=== PATIENT | male | born 1975 | race American Indian/Alaskan Native ===

== ENCOUNTER 2022-05-26 02:33 | Emergency (ER) | payer SELFPAY ==
[~2022-05-26] VITALS: Ht 177.8 cm; Wt 102.1 kg
[2022-05-26] MEDS ORDERED: MYLANTA ONE (02:41)
[2022-05-26] MEDS ORDERED: LIDOCAINE HCL VISCOUS ONE (02:41)
[2022-05-26] MEDS ORDERED: MYLANTA PO STA (02:44)
[2022-05-26] MEDS ORDERED: LIDOCAINE HCL VISCOUS MM STA (02:44)
[2022-05-26 02:45] VITALS: BP 177/104
--- NOTE | 2022-05-26 02:52 | PCM.EKG ---
[facility] Test Date: 2022-05-26 Test Time: 02:34:43 Pat Name: HIMANSHU CHAVES Department: Room: Gender: M Cook Jelly: SHAN : 1975 Requested By: REENA NELSON Order Number: [id number] Reading MD: Measurements Intervals [place] Rate: 87 P: -3 [place]: 145 QRS: -17 QRSD: 90 T: 7 QT: 387 QTc: 466 Interpretive Statements Sinus rhythm Multiple ventricular premature complexes Probable left atrial enlargement Borderline left axis deviation No previous ECG available for comparison Please click the below link to view image of tracing.
[2022-05-26] MEDS: NITROSTAT SL PRN ×3 (02:54→03:37)
--- NOTE | 2022-05-26 02:54 | NUR ---
XRAY IN ROOM FOR XR CHEST
[2022-05-26 02:56] LABS: BASOPHIL % 0.3 % (0.0-0.2); EOSINOPHIL # 0.1 10^3/uL (0.0-0.2); LYMPHOCYTES # 5.16 10^3/uL1 (1.0-4.8); LYMPHOCYTES % 53.7 % (24.0-44.0); MEAN CORP HGB 31.7 pg (26-34); MONOCYTES # 0.8 10^3/uL (0.3-0.8); MONOCYTES % 8.7 % (5.0-12.0); NEUTROPHIL # 3.5 10^3/uL (1.8-7.7); NEUTROPHILS % 36.2 % (41.0-85.0); PLATELET COUNT 276 10^3/uL (150-400); RED CELL DISTRIBUTION WIDTH 13.3 % (11.5-14.5)
--- NOTE | 2022-05-26 03:00 | DIREP ---
PROCEDURE:CHEST 1 VIEW COMPARISON:None. INDICATIONS:chest pain FINDINGS: LUNGS/PLEURA:No significant pulmonary parenchymal abnormalities. No effusion or pneumothorax. VASCULATURE:Normal. Unremarkable pulmonary vasculature. CARDIAC:Heart size is normal. MEDIASTINUM:Normal. No visible mass or adenopathy. BONES:Normal. No fracture or visible bony lesion. OTHER:EKG leads overlie the chest. CONCLUSION: No acute cardiopulmonary abnormality. Dictated by: Yang Jenkins MD on 05/26/2022 at 02:58 AM
[2022-05-26] MEDS ORDERED: MORPHINE SULFATE ONE (03:19)
[2022-05-26 03:20] LABS: CARBON DIOXIDE 22.6 mmol/L (20.0-32)
[2022-05-26] MEDS ORDERED: MORPHINE SULFATE IV STA (03:20)
[2022-05-26 03:24] LABS: EOSINOPHIL 1 % (1-4); LYMPHOCYTE 59 % (25-36); MONOCYTE 7 % (3-9); SEGMENTED NEUTROPHILS 33 % (31-76)
[2022-05-26] MEDS ORDERED: ASPIRIN PO STA (03:24)
[2022-05-26] MEDS ORDERED: HEPARIN 500 UNIT/5 ML (100/ML) IV STA (03:24)
[2022-05-26] MEDS ORDERED: ASPIRIN ONE (03:25)
[2022-05-26] MEDS ORDERED: HEPARIN ONE (03:25)
[2022-05-26 03:30] VITALS: BP 155/97
[2022-05-26] MEDS ORDERED: HEPARIN IV STA (03:31)
--- NOTE | 2022-05-26 03:40 | NUR ---
EKG sent to Dr. Naik.
[2022-05-26] MEDS ORDERED: HEPARIN-D5W 20,000 UNIT/500 ML 500 ML IV ONE (03:46)
--- NOTE | 2022-05-26 03:48 | ER.PDOC ---
General Chief Complaint: Dyspnea/Respdistress Stated Complaint: DIFF BREATHING Time seen by MD: 03:00 Source: patient Exam Limitations: no limitations History of Present Illness Initial Comments 46-year-old male with no significant medical history, about 1 hour ago woke up with severe chest pain. It is central, burning, also heaviness. No radiation. He does have some shortness of breath. The pain has been constant since it started. No leg pain or edema. No history of DVT or PE. States that he is normally healthy, exercises frequently and is active, non-smoker Timing/Duration: 1-3 hours Severity/Quality: severe Activities at Onset: sleep Prior CP/Workup: No Prior Chest Pain Associated Symptoms: shortness of breath Allergies: Coded Allergies: No Known Allergies (Unverified , 05/26/22) Past Medical History Medical History: diabetes Surgical History: no surgical history Social History Alcohol Use: none Drug Use: none All Other Systems: Reviewed and Negative Physical Exam General Appearance: Moderate Distress HEENT: Normal ENT Inspection Neck: Normal Inspection Respiratory: lungs clear, normal breath sounds Cardiovascular: Normal Peripheral Pulses, Regular Rate, Rhythm, No Edema Extremities: Normal Inspection, No Pedal Edema Neurologic/Psychiatric: Alert, Oriented x 3 Skin: Normal Color Lymphatic: No Adenopathy Results/Orders Results/Orders Orders - REENA NELSON MD Lidocaine Hcl (Lidocaine Hcl Viscous) (05/26/22 02:44) Mag Hydrox/Aluminum Hyd/Simeth (Mylanta) (05/26/22 02:44) Cbc With Auto Diff (05/26/22 02:49) Comprehensive Metabolic Panel (05/26/22 02:49) Probnp B-Type Wood Router (05/26/22 02:49) D-Dimer (05/26/22 02:49) Xr Chest 1v (05/26/22 02:49) PT (05/26/22 02:49) Ekg-Routine (05/26/22 02:49) Troponin I High Sensitivity (05/26/22 02:49) Nitroglycerin (Nitrostat) (05/26/22 03:00) Saline Lock (05/26/22 02:53) Morphine Sulfate (Morphine Sulfate) (05/26/22 03:19) Morphine Sulfate (Morphine Sulfate) (05/26/22 03:20) Aspirin (Aspirin) (05/26/22 03:24) Heparin Sodium,Porcine/Pf (Heparin 500 U (05/26/22 03:24) Aspirin (Aspirin) (05/26/22 03:25) Heparin Sodium,Porcine (Heparin) (05/26/22 03:25) Heparin Sodium,Porcine (Heparin) (05/26/22 03:31) Heparin Sodium,Porcine/D5w (Heparin-D5w (05/26/22 04:00) Heparin Sodium,Porcine/D5w (Heparin-D5w (05/26/22 04:00) Vital Signs Date Time Temp Pulse Resp B/P (MAP) Pulse Ox O2 Delivery O2 Flow Rate FiO2 05/26/22 02:45 98.1 93 20 100 05/26/22 02:45 98.1 93 20 05/26/22 02:45 98.1 93 20 177/104 (128) 100 Room Air* 0 21 Administered Medications Medications (Trade) Dose Ordered Sig/Maren Route PRN Reason Start Time Stop Time Status Last Admin Dose Admin Aspirin (Aspirin) 325 mg OT STAT PO 05/26/22 03:24 05/26/22 03:25 DC 05/26/22 03:30 325 MG Heparin Sodium (Porcine) (Heparin) 5,000 unit STAT STAT IV 05/26/22 03:31 05/26/22 03:34 DC 05/26/22 03:35 5,000 UNIT Lidocaine HCl (Lidocaine HCl Viscous) 15 ml STAT STAT MM 05/26/22 02:44 05/26/22 02:46 DC 05/26/22 02:46 15 ML Morphine Sulfate (Morphine Sulfate) 4 mg STAT STAT IV 05/26/22 03:20 05/26/22 03:21 DC 05/26/22 03:21 4 MG Nitroglycerin (Nitrostat) 0.4 mg PRN PRN SL CHEST PAIN 05/26/22 03:00 06/25/22 02:59 05/26/22 03:37 0.4 MG Laboratory Tests Test 05/26/22 02:50 05/26/22 02:59 White Blood Count 9.6 10^3/uL (4.5-11.0) Red Blood Count 5.24 10^6/uL (4.50-5.90) Hemoglobin 16.6 g/dL (13.9-16.3) H Hematocrit 48.5 % (37.0-53.0) Mean Corpuscular Volume 92.6 fL (78-100) Mean Corpuscular Hemoglobin 31.7 pg (26-34) Mean Corpuscular Hemoglobin Concent 34.2 g/dL (33-36.5) Red Cell Distribution Width 13.3 % (11.5-14.5) Platelet Count 276 10^3/uL (150-400) Mean Platelet Volume 9.9 fL (7.8-11.0) Neutrophils (%) (Auto) 36.2 % (41.0-85.0) L Lymphocytes (%) (Auto) 53.7 % (24.0-44.0) H Monocytes (%) (Auto) 8.7 % (5.0-12.0) Neutrophils # (Auto) 3.5 10^3/uL (1.8-7.7) Lymphocytes # (Auto) 5.16 10^3/uL1 (1.0-4.8) H Monocytes # (Auto) 0.8 10^3/uL (0.3-0.8) Absolute Immature Granulocyte (auto 0.01 10^3 u/L (0-2) Absolute Eosinophils (auto) 0.1 10^3/uL (0.0-0.2) Immature Granulocytes % 0.10 % (0.00-0.50) Eosinophils % 1.0 % (0.0-5.0) Basophils % 0.3 % (0.0-0.2) H Basophils # 0.0 10^3/uL (0.0-0.1) Prothrombin Time 9.4 SEC (9.1-11.5) Prothrombin Time INR (Non-Therap) 0.9 D-Dimer 0.19 mg/L (0.19-0.49) Sodium Level 133 mmol/L (132-145) Potassium Level 3.5 mmol/L (3.6-5.2) L Chloride Level 97.0 mmol/L (96-109) Carbon Dioxide Level 22.6 mmol/L (20.0-32) Anion Gap 16.9 Blood Urea Nitrogen 11 mg/dL (7-18) Creatinine 0.94 mg/dL (0.59-1.40) Estimated GFR () 104.5 (>/=60) Est GFR (CKD-EPI)(Non-Afr [place]) 86.4 (>/=60) BUN/Creatinine Ratio 11.0 Glucose Level 335 mg/dL (70-110) H Calcium Level 8.8 mg/dL (8.4-10.5) Total Bilirubin 0.8 mg/dL (0.2-1.0) Aspartate Amino Transferase (AST) 30 U/L (0-35) Alanine Aminotransferase (ALT) 61 U/L (12-78) Alkaline Phosphatase 198 U/L (50-136) H Troponin I High Sensitivity 1165 ng/L (0-75) *H Pro-B-Type Natriuretic Peptide 181 pg/mL (0-125) H Total Protein 8.0 g/dL (6.4-8.2) Albumin 3.7 g/dL (3.4-5.0) Globulin 4.3 Albumin/Globulin Ratio 0.860 Segmented Neutrophils 33 % (31-76) Lymphocytes 59 % (25-36) H Monocytes 7 % (3-9) Absolute Eosinophils (Manual) 1 % (1-4) Platelet Estimate ADEQUATE Platelet Morphology NORMAL Progress Progress EKG shows sinus rhythm, rate of 85, normal axis, no ST segment elevation or depression Patient is still having severe pain even after GI cocktail, he was hypertensive systolic 180, we gave him 3 nitro's, 4 mg of morphine, pain is down to a 2 out of 10. His troponin is positive greater than 1000. Give a full dose aspirin, heparin bolus and drip. Accepted for transfer to [facility] for NSTEMI ER DEPART Departure Time of Disposition: 04:09 Disposition: 09 ADMITTED INPATIENT Impression: Primary Impression: NSTEMI (non-ST elevated myocardial infarction) Condition: Critical Referrals: PCP,UNKNOWN (PCP) PRIMARY CARE PROVIDER Duration or Time Spent with Pa: 40m Critical Care Note Total Time (mins): 40 REENA NELSON MD May 26, 2022 03:48
--- NOTE | 2022-05-26 03:53 | PCM.EKG ---
[facility] Test Date: 2022-05-26 Test Time: 03:44:17 Pat Name: HIMANSHU CHAVES Department: Room: Gender: M Sketch Liner: SHAN : 1975 Requested By: REENA NELSON Order Number: [id number] Reading MD: Measurements Intervals [place] Rate: 82 P: 13 NC: 136 QRS: -28 QRSD: 95 T: 7 QT: 409 QTc: 478 Interpretive Statements Sinus rhythm Multiple ventricular premature complexes Borderline left axis deviation Abnormal R-wave progression, late transition ST elev, probable normal early repol pattern Borderline prolonged QT interval Baseline wander in lead(s) V2 Compared to ECG 05/26/2022 02:34:43 ST (T wave) deviation now present Please click the below link to view image of tracing.
--- NOTE | 2022-05-26 03:54 | NUR ---
EKG repeated and sent to Dr. Naik.
[2022-05-26 03:56] VITALS: BP 142/89
--- NOTE | 2022-05-26 03:56 | NUR ---
[facility] ER ACCEPTING DR TRAVIS ACCEPTED PATIENT, AOCassidy MARTINEZ
[2022-05-26] MEDS ORDERED: HEPARIN-D5W 20,000 UNIT/500 ML 500 ML IV SCH ×2 (04:00)
--- NOTE | 2022-05-26 04:22 | NUR ---
Report called to KEV Gamez at [facility] ER. Pt requested be notified, no answer, pt requested nephew be notified, spoke with Afshin fallon updated about patients status and plan of care.
== END 2022-05-26 04:25 | disposition admitted as inpatient to this hospital (09) ==
LOC: ER 02:33
DX: I21.4 Non-ST elevation (NSTEMI) myocardial infarction (principal); E11.9 Type 2 diabetes mellitus without complications
CPT/HCPCS: 99291; 96365; 96375; 96376; 71045; 80053; 85025; 36415; 85379; 84484; 83880; 85610; 93005 ×2; J1644; J3490; 96374; 99285